=== PATIENT | male | born 1955 | race African-American/Black ===

== ENCOUNTER 2025-07-21 01:37 | Emergency (ER) | payer MEDICARE, BC ==
[~2025-07-21] VITALS: Ht 182.9 cm; Wt 48.0 kg
[2025-07-21 01:38] VITALS: O2SAT 97
[2025-07-21] MEDS: IBUPROFEN 400MG TABLET PO ONE (02:10)
[2025-07-21] MEDS: MORPHINE SULFATE 4 MG/ML INJ (FOR IV/IM USE) IV ONE (02:45)
[2025-07-21] MEDS: ONDANSETRON HCL 4MG/2ML INJ IV ONE (02:45)
[2025-07-21] MEDS: SODIUM CHLORIDE 0.9% 1,000 ML IV ONE (04:29)
[2025-07-21] MEDS: HYDROCODONE/ACETAMINOPHEN 5/325MG TABLET PO ONE (06:42)
[2025-07-21 10:30] VITALS: BP 98/58; PULSE 59; RESP 16; TEMP 37.1; O2SAT 98
== END 2025-07-21 11:10 | disposition home or self-care (01) ==
LOC: ER 01:37
DX: S43.002A Unspecified subluxation of left shoulder joint, initial encounter (principal); M75.102 Unspecified rotator cuff tear or rupture of left shoulder, not specified as traumatic; X58.XXXA Exposure to other specified factors, initial encounter; F12.90 Cannabis use, unspecified, uncomplicated; Z85.118 Personal history of other malignant neoplasm of bronchus and lung; Y93.89 Activity, other specified; Y92.89 Other specified places as the place of occurrence of the external cause; Y99.8 Other external cause status
CPT/HCPCS: 99285; 96360; 96361; 73030; J7030; J2270; J2405

== ENCOUNTER 2025-08-20 11:25 | Inpatient (IN) | payer MEDICARE, BC, OTHER ==
[2025-08-20] VITALS (22 sets, daily range): BP systolic 92–139; BP diastolic 61–125; PULSE 67–86; RESP 17–48; TEMP 36.4–37.1; O2SAT 90–100
[~2025-08-20] VITALS: Ht 175.3 cm; Wt 72.1 kg
[2025-08-20] MEDS: PIPERACILLIN/TAZO 3.375G/50ML 50 ML IV ONE (12:09)
[2025-08-20 12:27] LABS: HEMATOCRIT. 36.9 % (42.0-52.0); HEMOGLOBIN. 11.8 g/dL (14.0-18.0); MEAN PLATELET VOLUME 7.3 fl (7.4-10.4); PLATELET 495 x1000/uL (130-400); RED BLOOD CELL COUNT 4.38 mill/uL (4.7-6.1); RED CELL DISTRIBUTION WIDTH 17.9 % (11.6-14.6)
[2025-08-20 12:34] LABS: INR 1.1
[2025-08-20] MEDS: VANCOMYCIN 1G PREMIX 200 ML IV ONE (12:35)
[2025-08-20] MEDS: SODIUM CHLORIDE 0.9% (SEPSIS BOLUS) IV ONE (12:35)
[2025-08-20 12:51] LABS: CREATININE 0.3 mg/dL (0.6-1.3); UREA NITROGEN BLOOD 10 mg/dL (9-23)
[2025-08-20 12:52] LABS: ASPARTATE AMINOTRANSFERASE 22 IU/L (<34)
[2025-08-20 12:53] LABS: BILIRUBIN DIRECT 0.1 mg/dL (<=3.0); BILIRUBIN TOTAL 0.4 mg/dL (0.1-1.0); PROTEIN TOTAL 5.5 g/dL (6.0-8.3)
[2025-08-20 13:33] LABS: BAND% 36.0 % (1.0-6.0); LYMPHOCYTES % MANUAL 3.0 % (20.0-50.0); MONOCYTES % MANUAL 7.0 % (2.0-8.0); NEUTROPHILS % MANUAL 54.0 % (45.0-75.0); PLATELET ESTIMATE INCREASED
[2025-08-20] MEDS ORDERED: ONDANSETRON HCL 4MG/2ML INJ IV PRN (14:15)
[2025-08-20] MEDS ORDERED: ZOLPIDEM TARTRATE 5MG TABLET PO PRN (14:15)
[2025-08-20] MEDS ORDERED: CLONIDINE 0.1MG TABLET PO PRN (14:15)
[2025-08-20] MEDS ORDERED: MAGNESIUM/ALUMINUM HYDROXIDE/SIMETHICONE 30ML UDC PO PRN (14:15)
[2025-08-20] MEDS ORDERED: NALOXONE HCL 0.4MG/ML VIAL IV PRN (14:30)
[2025-08-20] MEDS: MIDODRINE HCL 5MG TABLET PO SCH (14:49)
[2025-08-20] MEDS: SODIUM CHLORIDE 0.9% 1,000 ML IV ONE (14:49)
[2025-08-20] MEDS: ENOXAPARIN 40MG/0.4ML SYR SUBCUT SCH (14:59)
[2025-08-20] MEDS: SODIUM CHLORIDE 0.9% 1,000 ML IV SCH (14:59)
[2025-08-20] MEDS ORDERED: VANCOMYCIN 500MG PREMIX 100 ML IV SCH (16:00)
[2025-08-20] MEDS ORDERED: MVI, ADULT NO.1 10 ML, FOLIC ACID 1 MG, THIAMINE HCL 100 MG in SODIUM CHLORIDE 0.9% 1,0... IV SCH (16:00)
[2025-08-20] MEDS: NOREPINEPHRINE 8MG/250ML PMX 250 ML IV ONE (16:16)
[2025-08-20] MEDS: VANCOMYCIN 500 MG in DEXT 5% WATER 100 ML IV SCH (18:54)
[2025-08-20] MEDS: PIPERACILLIN/TAZO 3.375G/50ML 50 ML IV SCH (22:34)
[2025-08-20] MEDS: MORPHINE SULFATE 4 MG/ML INJ (FOR IV/IM USE) IV PRN (22:38)
[2025-08-21] VITALS (73 sets, daily range): BP systolic 72–177; BP diastolic 50–151; PULSE 62–88; RESP 18–41; TEMP 36.4–37; O2SAT 88–100
[2025-08-21] MEDS: VANCOMYCIN 750MG PREMIX 150 ML IV SCH (02:00)
[2025-08-21 03:12] LABS: TROPONIN I HIGH SENSITIVITY 443 ng/L (3.0-53)
[2025-08-21 06:06] LABS: HEMATOCRIT. 34.7 % (42.0-52.0); HEMOGLOBIN. 10.9 g/dL (14.0-18.0); MEAN PLATELET VOLUME 7.8 fl (7.4-10.4); PLATELET 498 x1000/uL (130-400); RED BLOOD CELL COUNT 4.04 mill/uL (4.7-6.1); RED CELL DISTRIBUTION WIDTH 18.6 % (11.6-14.6)
[2025-08-21 06:18] LABS: UREA NITROGEN BLOOD 8 mg/dL (9-23)
[2025-08-21 06:54] LABS: TROPONIN I HIGH SENSITIVITY 266 ng/L (3.0-53)
[2025-08-21 07:16] LABS: CREATININE 0.2 mg/dL (0.6-1.3)
[2025-08-21] MEDS: PANTOPRAZOLE SODIUM 40 MG/VIAL IV SCH (08:46)
[2025-08-21 09:10] LABS: HEPATITIS C AB NON REACTIVE (Neg) (Negative)
[2025-08-21] MEDS: HYDROCODONE/ACETAMINOPHEN 5/325MG TABLET PO PRN (09:33)
[2025-08-21 12:04] LABS: BAND% 39.0 % (1.0-6.0); LYMPHOCYTES % MANUAL 6.0 % (20.0-50.0); MONOCYTES % MANUAL 10.0 % (2.0-8.0); NEUTROPHILS % MANUAL 45.0 % (45.0-75.0); PLATELET ESTIMATE INCREASED
[2025-08-21] MEDS: VANCOMYCIN 500 MG in DEXT 5% WATER 100 ML IV SCH (17:16)
[2025-08-21] MEDS ORDERED: MIDODRINE HCL 5MG TABLET PO SCH (20:45)
[2025-08-21] MEDS: MIDODRINE HCL 5MG TABLET PO SCH (22:16)
[2025-08-21] MEDS: SODIUM HYPOCHLORITE 0.125% 473ML SOLUTION TOP SCH (22:24)
[2025-08-21] MEDS: ACETAMINOPHEN 325MG TABLET PO PRN (22:27)
[2025-08-21] MEDS: NOREPINEPHRINE 8MG/250ML PMX 250 ML IV PRN (22:41)
[2025-08-22] VITALS (89 sets, daily range): BP systolic 70–155; BP diastolic 39–133; PULSE 62–104; RESP 11–45; TEMP 36.6–37; O2SAT 93–100
[2025-08-22 08:15] LABS: HEMATOCRIT. 35.1 % (42.0-52.0); HEMOGLOBIN. 11.1 g/dL (14.0-18.0); MEAN PLATELET VOLUME 8.0 fl (7.4-10.4); PLATELET 366 x1000/uL (130-400); RED BLOOD CELL COUNT 4.09 mill/uL (4.7-6.1); RED CELL DISTRIBUTION WIDTH 18.9 % (11.6-14.6)
[2025-08-22 08:35] LABS: CREATININE 0.2 mg/dL (0.6-1.3); UREA NITROGEN BLOOD < 5 mg/dL (9-23)
[2025-08-22] MEDS: ASPIRIN 81MG TABLET PO SCH (08:36)
[2025-08-22] MEDS: MIDODRINE HCL 5MG TABLET PO SCH (08:43)
[2025-08-22] MEDS ORDERED: DEXTROSE 50% WATER 50ML SYRINGE IV PRN (10:00)
[2025-08-22 12:21] LABS: BAND% 37.0 % (1.0-6.0); LYMPHOCYTES % MANUAL 4.0 % (20.0-50.0); MONOCYTES % MANUAL 8.0 % (2.0-8.0); NEUTROPHILS % MANUAL 51.0 % (45.0-75.0); PLATELET ESTIMATE NORMAL
[2025-08-22] MEDS: VANCOMYCIN 750MG/150ML (BAXTER) IV SCH (13:08)
[2025-08-22] MEDS: POTASSIUM CHLORIDE 20MEQ TABLET SR PO NR ×2 (13:10→14:34)
[2025-08-22] MEDS ORDERED: LIDOCAINE HCL 1% 10 MG/ML 10ML VIAL ONE (13:19)
[2025-08-22 14:22] LABS: CLARITY URINE CLOUDY (CLEAR); COLOR URINE DARK YELLOW (YELLOW); GLUCOSE URINE NEGATIVE (NEGATIVE); KETONES URINE 1+ (NEGATIVE); LEUKOCYTE ESTERASE URINE NEGATIVE (NEGATIVE); NITRITE URINE NEGATIVE (NEGATIVE); OCCULT BLOOD URINE NEGATIVE (NEGATIVE); PH URINE 5.5 (4.5-8.0); PROTEIN URINE 2+ (NEGATIVE); SPECIFIC GRAVITY URINE 1.040 (1.005-1.030); UROBILINOGEN URINE 1.0 E.U./dL (0.2-1.0)
[2025-08-22 14:33] LABS: INFLUENZA TYPE A Presumptive Negative (Pres. Neg.); INFLUENZA TYPE B Presumptive Negative (Pres. Neg.)
[2025-08-22 14:34] LABS: RESPIRATORY SYNCYTIAL VIRUS Not Detected (Not Detectd)
[2025-08-22] MEDS: OXYCODONE HCL 10MG TABLET PO PRN (14:34)
[2025-08-22 15:52] LABS: HYALINE CASTS URINE 0-5 /lpf
[2025-08-22 15:53] LABS: COARSE GRANULAR CASTS URINE 0-5 /lpf
[2025-08-22 15:55] LABS: BACTERIA URINE 2+; CALCIUM OXALATE CRYSTALS URINE 1+ /lpf; RBC URINE NONE SEEN /hpf (0-2); SQUAMOUS EPITHELIAL CELL URINE FEW /lpf (RARE/1+)
[2025-08-22] MEDS: IPRATROPIUM/ALBUTEROL 0.5-3(2.5)MG/3ML NEB HHN PRN (17:29)
[2025-08-22] MEDS ORDERED: KETAMINE HCL 50 MG/ML 10ML ONE (18:49)
[2025-08-22] MEDS ORDERED: ALBUMIN HUMAN 12.5G/250ML (5%) IV ONE (18:50)
[2025-08-22] MEDS ORDERED: ACETAMINOPHEN 1000MG/100ML 100 ML IV ONE (18:50)
[2025-08-22] MEDS ORDERED: ROCURONIUM BROMIDE 10MG/ML VIAL 5ML IV ONE (18:51)
[2025-08-22] MEDS ORDERED: ONDANSETRON HCL 4MG/2ML INJ ONE (18:55)
[2025-08-22] MEDS ORDERED: FENTANYL CITRATE/PF 50MCG/ML 2ML VIAL ONE (19:38)
[2025-08-22] MEDS ORDERED: MIDAZOLAM HCL 2 MG/2 ML VIAL ONE (19:40)
[2025-08-22] MEDS ORDERED: POLYMYXIN B SULFATE 500000 UNITS/VIAL ONE (19:54)
[2025-08-22] MEDS ORDERED: SODIUM BICARBONATE 8.4% 50MEQ/50ML SYR IV ONE (20:04)
[2025-08-22] MEDS ORDERED: CALCIUM CHLORIDE 1GM/10ML SYR IV ONE (20:09)
[2025-08-22 22:00] LABS: BG BASE EXCESS -5.6 mmol/L (-2.0-3.0); BG CARBOXYHEMOGLOBIN 0.9 % (0.5-1.5); BG CPAP (cmH2O) 10.0 cm(H2O); BG DEOXYHEMOGLOBIN 0.3 % (0.0-5.0); BG FRACTION INSPIRED OXYGEN 60; BG HCO3 ACT 18.4 mmol/L (21.0-28.0); BG METHEMOGLOBIN 0.3 % (0.5-1.5); BG OXYGEN SATURATION 99.7 % (94.0-98.0); BG OXYHEMOGLOBIN 98.5 % (94.0-98.0); BG PCO2 31.4 mmHg (35.0-48.0); BG PEEP (cmH2O) 5.0 cmH2O; BG PH 7.386 (7.350-7.450); BG PO2 230.5 mmHg (83.0-108.0); BG SAMPLE SITE RIGHT RADIAL; BG TOTAL HEMOGLOBIN 11.6 g/dL (13.5-17.5); BG VENT MODE VENT - CPAP
[2025-08-23] VITALS (83 sets, daily range): BP systolic 65–150; BP diastolic 46–139; PULSE 56–93; RESP 9–46; TEMP 35.6–36.7; O2SAT 95–100
[2025-08-23 04:59] LABS: HEMATOCRIT. 32.5 % (42.0-52.0); HEMOGLOBIN. 10.3 g/dL (14.0-18.0); MEAN PLATELET VOLUME 7.9 fl (7.4-10.4); PLATELET 370 x1000/uL (130-400); RED BLOOD CELL COUNT 3.85 mill/uL (4.7-6.1); RED CELL DISTRIBUTION WIDTH 18.5 % (11.6-14.6)
[2025-08-23 05:05] LABS: CREATININE 0.2 mg/dL (0.6-1.3); UREA NITROGEN BLOOD 7 mg/dL (9-23)
[2025-08-23 10:28] LABS: BAND% 38.0 % (1.0-6.0); LYMPHOCYTES % MANUAL 2.0 % (20.0-50.0); MONOCYTES % MANUAL 7.0 % (2.0-8.0); NEUTROPHILS % MANUAL 53.0 % (45.0-75.0)
[2025-08-23 10:29] LABS: PLATELET ESTIMATE NORMAL
[2025-08-23] MEDS: METHYLPREDNISOLONE SOD SUCC 40MG/ML (ACT-O-VIAL) IV SCH (13:43)
[2025-08-23] MEDS ORDERED: DEXTROSE 50% WATER 50ML SYRINGE IV PRN (21:45)
[2025-08-24] VITALS (84 sets, daily range): BP systolic 63–146; BP diastolic 47–111; PULSE 55–97; RESP 13–35; TEMP 36.3–36.9; O2SAT 86–100
[2025-08-24] MEDS: BLOOD SUGAR DIAGNOSTIC STRIP TEST SCH (05:37)
[2025-08-24] MEDS: INSULIN LISPRO 100 UNITS/ML SUBCUT SCH (06:44)
[2025-08-24 11:26] LABS: HEMATOCRIT. 29.7 % (42.0-52.0); HEMOGLOBIN. 9.6 g/dL (14.0-18.0); MEAN PLATELET VOLUME 7.6 fl (7.4-10.4); PLATELET 297 x1000/uL (130-400); RED BLOOD CELL COUNT 3.55 mill/uL (4.7-6.1); RED CELL DISTRIBUTION WIDTH 19.3 % (11.6-14.6)
[2025-08-24] MEDS ORDERED: NALOXONE HCL 0.4MG/ML VIAL IV PRN (11:30)
[2025-08-24] MEDS: ZINC SULFATE 220 MG ( 50 ) CAPSULE PO SCH (11:36)
[2025-08-24] MEDS: ASCORBIC ACID 500 MG TABLET PO SCH (11:36)
[2025-08-24] MEDS: MULTIVITAMINS,THER W-MINERALS TABLET PO SCH (11:36)
[2025-08-24] MEDS: OXYCODONE HCL 10MG TABLET PO PRN (11:36)
[2025-08-24 11:50] LABS: UREA NITROGEN BLOOD 9 mg/dL (9-23)
[2025-08-24 11:55] LABS: CREATININE 0.4 mg/dL (0.6-1.3)
[2025-08-24] MEDS: MIDODRINE HCL 5MG TABLET PO SCH (13:35)
[2025-08-24 17:15] LABS: BAND% 7.0 % (1.0-6.0); LYMPHOCYTES % MANUAL 5.0 % (20.0-50.0); MYELOCYTES % 1.0 % (0-0); NEUTROPHILS % MANUAL 87.0 % (45.0-75.0); PLATELET ESTIMATE NORMAL
[2025-08-24] MEDS: AMPICILLIN SOD/SULBACTAM NA 3 G in SODIUM CHLORIDE 0.9% 100 ML IV SCH (20:19)
[2025-08-25] VITALS (82 sets, daily range): BP systolic 85–203; BP diastolic 55–190; PULSE 50–129; RESP 14–35; TEMP 35–36.7; O2SAT 87–100
[2025-08-25 16:56] LABS: BG BASE EXCESS -4.0 mmol/L (-2.0-3.0); BG CARBOXYHEMOGLOBIN 1.0 % (0.5-1.5); BG DEOXYHEMOGLOBIN 6.8 % (0.0-5.0); BG FLOW(L/min) 15.00 L/min; BG FRACTION INSPIRED OXYGEN 100; BG HCO3 ACT 30.5 mmol/L (21.0-28.0); BG METHEMOGLOBIN 0.3 % (0.5-1.5); BG OXYGEN SATURATION 93.1 % (94.0-98.0); BG OXYHEMOGLOBIN 91.9 % (94.0-98.0); BG PCO2 140.1 mmHg (35.0-48.0); BG PH 6.956 (7.350-7.450); BG PO2 97.4 mmHg (83.0-108.0); BG SAMPLE SITE RIGHT RADIAL; BG TOTAL HEMOGLOBIN 11.1 g/dL (13.5-17.5); BG VENT MODE MASK - NRB
[2025-08-25] MEDS: IOHEXOL-350 100 ML BOTTLE ONE (17:21)
[2025-08-25 19:07] LABS: BG BASE EXCESS -2.0 mmol/L (-2.0-3.0); BG CARBOXYHEMOGLOBIN 1.0 % (0.5-1.5); BG DEOXYHEMOGLOBIN 7.0 % (0.0-5.0); BG FRACTION INSPIRED OXYGEN 50; BG HCO3 ACT 24.2 mmol/L (21.0-28.0); BG METHEMOGLOBIN 0.3 % (0.5-1.5); BG OXYGEN SATURATION 92.9 % (94.0-98.0); BG OXYHEMOGLOBIN 91.7 % (94.0-98.0); BG PCO2 47.4 mmHg (35.0-48.0); BG PH 7.326 (7.350-7.450); BG PO2 70.1 mmHg (83.0-108.0); BG SAMPLE SITE RIGHT RADIAL; BG TOTAL HEMOGLOBIN 11.0 g/dL (13.5-17.5); BG TOTAL RESPIRATORY RATE 22 b/min; BG VENT MODE MASK - BIPAP; BG VENT RATE 16.0 set
[2025-08-25] MEDS: IPRATROPIUM/ALBUTEROL 0.5-3(2.5)MG/3ML NEB HHN SCH (20:25)
[2025-08-26] VITALS (79 sets, daily range): BP systolic 94–156; BP diastolic 52–98; PULSE 58–107; RESP 17–51; TEMP 35.6–36.9; O2SAT 55–100
[2025-08-26 10:15] LABS: BG BASE EXCESS -1.0 mmol/L (-2.0-3.0); BG CARBOXYHEMOGLOBIN 0.9 % (0.5-1.5); BG DEOXYHEMOGLOBIN 0.0 % (0.0-5.0); BG FRACTION INSPIRED OXYGEN 100; BG HCO3 ACT 23.7 mmol/L (21.0-28.0); BG METHEMOGLOBIN 0.3 % (0.5-1.5); BG OXYGEN SATURATION 100.0 % (94.0-98.0); BG OXYHEMOGLOBIN 98.8 % (94.0-98.0); BG PCO2 38.9 mmHg (35.0-48.0); BG PH 7.402 (7.350-7.450); BG PO2 424.4 mmHg (83.0-108.0); BG SAMPLE SITE RIGHT RADIAL; BG TOTAL HEMOGLOBIN 9.3 g/dL (13.5-17.5); BG TOTAL RESPIRATORY RATE 25 b/min; BG VENT MODE MASK - BIPAP; BG VENT RATE 16.0 set
[2025-08-26] MEDS: HYDROCODONE/ACETAMINOPHEN 5/325MG TABLET PO PRN (16:50)
[2025-08-26 17:47] LABS: CREATININE 0.4 mg/dL (0.6-1.3); PLATELET 214 x1000/uL (130-400); RED BLOOD CELL COUNT 3.26 mill/uL (4.7-6.1); RED CELL DISTRIBUTION WIDTH 19.4 % (11.6-14.6); UREA NITROGEN BLOOD 10 mg/dL (9-23)
[2025-08-26] MEDS: KCL 20MEQ/100ML X 2 FOR TOTAL KCL 40MEQ/200ML IV SCH (18:58)
[2025-08-26] MEDS ORDERED: POTASSIUM CHLORIDE 40 MEQ in DEXT 5% WATER 230 ML IV ONE (19:00)
[2025-08-27] VITALS (58 sets, daily range): BP systolic 113–141; BP diastolic 66–90; PULSE 68–99; RESP 14–36; TEMP 35.9–36.8; O2SAT 95–99
[2025-08-27 04:43] LABS: HEMATOCRIT. 26.2 % (42.0-52.0); HEMOGLOBIN. 8.3 g/dL (14.0-18.0); MEAN PLATELET VOLUME 7.7 fl (7.4-10.4); PLATELET 186 x1000/uL (130-400); RED BLOOD CELL COUNT 3.07 mill/uL (4.7-6.1); RED CELL DISTRIBUTION WIDTH 20.1 % (11.6-14.6)
[2025-08-27 05:00] LABS: CREATININE 0.4 mg/dL (0.6-1.3); UREA NITROGEN BLOOD 11 mg/dL (9-23)
[2025-08-27 11:18] LABS: BAND% 8.0 % (1.0-6.0); LYMPHOCYTES % MANUAL 1.0 % (20.0-50.0); MONOCYTES % MANUAL 10.0 % (2.0-8.0); NEUTROPHILS % MANUAL 81.0 % (45.0-75.0)
[2025-08-27 11:19] LABS: PLATELET ESTIMATE NORMAL
[2025-08-28] VITALS (46 sets, daily range): BP systolic 53–158; BP diastolic 10–94; PULSE 38–143; RESP 14–49; TEMP 34.5–35.9; O2SAT 66–99
[2025-08-28] MEDS ORDERED: VASOPRESSIN 20 UNIT in SODIUM CHLORIDE 0.9% 99 ML IV PRN (07:15)
[2025-08-28] MEDS ORDERED: PHENYLEPHRINE 100 MG in DEXT 5% WATER 240 ML IV PRN (07:15)
[2025-08-28] MEDS: NOREPINEPHRINE 8MG/250ML PMX 250 ML IV PRN (07:23)
[2025-08-28 08:40] LABS: BG BASE EXCESS -4.6 mmol/L (-2.0-3.0); BG CARBOXYHEMOGLOBIN 0.5 % (0.5-1.5); BG DEOXYHEMOGLOBIN 11.4 % (0.0-5.0); BG FRACTION INSPIRED OXYGEN 100; BG HCO3 ACT 22.5 mmol/L (21.0-28.0); BG METHEMOGLOBIN 0.3 % (0.5-1.5); BG OXYGEN SATURATION 88.5 % (94.0-98.0); BG OXYHEMOGLOBIN 87.8 % (94.0-98.0); BG PCO2 51.0 mmHg (35.0-48.0); BG PEEP (cmH2O) 5.0 cmH2O; BG PH 7.262 (7.350-7.450); BG PO2 63.4 mmHg (83.0-108.0); BG SAMPLE SITE RIGHT RADIAL; BG TIDAL VOLUME(mL) 450.0 mL; BG TOTAL HEMOGLOBIN 9.6 g/dL (13.5-17.5); BG VENT MODE VENT - AC; BG VENT RATE 16.0 set
[2025-08-28] MEDS: FENTANYL 2500MCG/250ML PMX 250 ML IV PRN (09:49)
[2025-08-28] MEDS ORDERED: EPINEPHRINE 0.1MG/ML (1:10,000) 10ML SYR ONE (10:20)
[2025-08-28] MEDS ORDERED: MAGNESIUM SULFATE 4G IN WATER 100ML PREMIX IV ONE (10:20)
[2025-08-28] MEDS ORDERED: CALCIUM CHLORIDE 1GM/10ML SYR IV ONE (10:20)
[2025-08-28] MEDS ORDERED: SODIUM BICARBONATE 8.4% 50MEQ/50ML SYR IV ONE (10:20)
[2025-08-28 12:23] LABS: HEMATOCRIT. 29.2 % (42.0-52.0); HEMOGLOBIN. 9.2 g/dL (14.0-18.0); MEAN PLATELET VOLUME 7.8 fl (7.4-10.4); PLATELET 108 x1000/uL (130-400); RED BLOOD CELL COUNT 3.47 mill/uL (4.7-6.1); RED CELL DISTRIBUTION WIDTH 20.7 % (11.6-14.6)
[2025-08-28 12:50] LABS: CREATININE 0.5 mg/dL (0.6-1.3); UREA NITROGEN BLOOD 12 mg/dL (9-23)
[2025-08-28] MEDS: PROPOFOL 10MG/ML 100ML 100 ML IV PRN (13:26)
[2025-08-28] MEDS: KCL 20MEQ/100ML PREMIX 100 ML IV SCH (13:31)
[2025-08-28] MEDS ORDERED: FENTANYL CITRATE/PF 50MCG/ML 2ML VIAL IV SCH (13:45)
[2025-08-28 20:45] LABS: LYMPHOCYTES % MANUAL 0.0 % (20.0-50.0); MONOCYTES % MANUAL 9.0 % (2.0-8.0); NEUTROPHILS % MANUAL 91.0 % (45.0-75.0); PLATELET ESTIMATE DECREASED
== END 2025-08-28 21:00 | DRG 853 ==
LOC: ER 11:25 → MICUNO 13:54 → ENRESERV 14:15 → EDBEDREQSVC 15:57 → ENRESERV 16:14 → 5EST 08-27 09:17 → MICUNO 08-28 07:00
PROVIDERS: ADMIT Internal Medicine; ATTEND Internal Medicine
PROC: 5A1935Z Respiratory Ventilation, Less than 24 Consecutive Hours (ICD-10-PCS; principal; 2025-08-22)
PROC: 0KBN0ZZ Excision of Right Hip Muscle, Open Approach (ICD-10-PCS; 2025-08-22)
PROC: 0JB70ZZ Excision of Back Subcutaneous Tissue and Fascia, Open Approach (ICD-10-PCS; 2025-08-22)
PROC: 0BH17EZ Insertion of Endotracheal Airway into Trachea, Via Natural or Artificial Opening (ICD-10-PCS; 2025-08-22)
PROC: 02HV33Z Insertion of Infusion Device into Superior Vena Cava, Percutaneous Approach (ICD-10-PCS; 2025-08-22)
PROC: B548ZZA Ultrasonography of Superior Vena Cava, Guidance (ICD-10-PCS; 2025-08-22)
PROC: 5A09357 Assistance with Respiratory Ventilation, Less than 24 Consecutive Hours, Continuous Positive Airway Pressure (ICD-10-PCS; 2025-08-25)
PROC: 5A09357 Assistance with Respiratory Ventilation, Less than 24 Consecutive Hours, Continuous Positive Airway Pressure (ICD-10-PCS; 2025-08-26)
PROC: 5A1935Z Respiratory Ventilation, Less than 24 Consecutive Hours (ICD-10-PCS; 2025-08-28)
PROC: 5A12012 Performance of Cardiac Output, Single, Manual (ICD-10-PCS; 2025-08-28)
PROC: 0BH17EZ Insertion of Endotracheal Airway into Trachea, Via Natural or Artificial Opening (ICD-10-PCS; 2025-08-28)
PROC: 5A09357 Assistance with Respiratory Ventilation, Less than 24 Consecutive Hours, Continuous Positive Airway Pressure (ICD-10-PCS; 2025-08-28)
DX: A41.51 Sepsis due to Escherichia coli [E. coli] (principal); E43 Unspecified severe protein-calorie malnutrition; L89.214 Pressure ulcer of right hip, stage 4; R65.21 Severe sepsis with septic shock; I21.A1 Myocardial infarction type 2; J18.9 Pneumonia, unspecified organism; L89.154 Pressure ulcer of sacral region, stage 4; J96.01 Acute respiratory failure with hypoxia; G82.20 Paraplegia, unspecified; C79.51 Secondary malignant neoplasm of bone; J44.0 Chronic obstructive pulmonary disease with (acute) lower respiratory infection; E87.1 Hypo-osmolality and hyponatremia; E87.20 Acidosis, unspecified; G93.40 Encephalopathy, unspecified; R64 Cachexia; Z20.822 Contact with and (suspected) exposure to COVID-19; Z66 Do not resuscitate; I46.9 Cardiac arrest, cause unspecified; D75.839 Thrombocytosis, unspecified; I10 Essential (primary) hypertension; D64.9 Anemia, unspecified; R62.7 Adult failure to thrive; Z99.3 Dependence on wheelchair; E16.2 Hypoglycemia, unspecified; S40.022A Contusion of left upper arm, initial encounter; E87.6 Hypokalemia; E83.51 Hypocalcemia; G35.D Multiple sclerosis, unspecified; L89.526 Pressure-induced deep tissue damage of left ankle; L89.516 Pressure-induced deep tissue damage of right ankle; L89.116 Pressure-induced deep tissue damage of right upper back; S71.001A Unspecified open wound, right hip, initial encounter; X58.XXXA Exposure to other specified factors, initial encounter; Y93.89 Activity, other specified; Y92.89 Other specified places as the place of occurrence of the external cause; Y99.8 Other external cause status; Z92.3 Personal history of irradiation; Z92.21 Personal history of antineoplastic chemotherapy; Z85.118 Personal history of other malignant neoplasm of bronchus and lung; Z68.23 Body mass index [BMI] 23.0-23.9, adult; Z74.01 Bed confinement status; Z87.891 Personal history of nicotine dependence
CPT/HCPCS: 31500; 31720; 36415; 36573; 36600; 70496; 70498; 71045; 71250; 76881; 80048; 80076; 80202; 81003; 82375; 82805; 82962; 83605; 84132; 84145; 84443; 84484; 85025; 85027; 86705; 86850; 86900; 87070; 87075; 87076; 87077; 87186; 87340; 87420; 87426; 87804; 88304; 93005; 93306; 93970; 94002; 94070; 94640; 94660; 94664; 96361; 96365; 96368; 98960; 99285; A4606; C1725; J0295; J1650; J1815; J2003; J2250; J2270; J2405; J2470; J2543; J2704; J2919; J3010; J3373; J3411; J3475; J3480; J3490; J7030; J7050; J7060; P9041; Q9967; J0131